=== PATIENT | male | born 1935 | race Caucasian/White ===

== ENCOUNTER 2018-10-21 10:02 | Emergency (ER) | payer OTHER ==
--- NOTE | 2018-10-21 10:20 | ED ---
Dizziness - HPI Summary HPI Summary: The patient is an 83 y/o M presenting to [facility] accompanied by with a chief complaint of sudden onset dizziness starting this morning when waking up. He reports that he couldn't get out of bed because he was very dizzy and movement aggravated the symptoms; the sensation was similar to syncope, but there was no syncopal episode. The dizziness has since resolved. He denies CP, SOB, headache , diarrhea, and constipation. No recent URI, but had recent UTI a few weeks ago that was not treated although he did see his PCP. Hx of HTN managed by medication. No hx of AK, CVA, or TIA. Fhx of DM and HTN. Intestinal volvulus repair in 2013. Nonsmoker, rare EtOH. - History Of Current Complaint Stated Complaint: DIZZINESS PER EMS Time Seen by Provider: 10/21/18 10:07 Hx Obtained From: Patient, Family/Armament Repairer - Onset/Duration: Resolved, Suddenly Timing: Hours Character: Dizzy Aggravating Factor(s): Other - movement Alleviating Factor(s): Rest Associated Signs And Symptoms: Positive: Other: - NEGATIVE: constipation, headache. Negative: Diarrhea, Chest Pain, SOB - Allergies/Home Medications Allergies/Adverse Reactions: Allergies Allergy/AdvReac Type Severity Reaction Status Date / Time No Known Allergies Allergy Verified 09/25/18 11:24 Home Medications: Home Medications Multivitamin 1 tab PO DAILY 10/21/18 [History Confirmed 10/21/18] Vitamin D TAB* 1 tab PO DAILY 10/21/18 [History Confirmed 10/21/18] PMH/Surg Hx/FS Hx/Imm Hx Endocrine/Hematology History: Reports: Hx Anemia Denies: Hx Anticoagulant Therapy, Hx Diabetes Cardiovascular History: Reports: Hx Aneurysm - AAA, Hx Hypertension - ON MEDS Denies: Hx Congestive Heart Failure, Hx Hypercholesterolemia, Hx Pacemaker/ ICD Respiratory History: Denies: Hx Asthma, Hx Chronic Obstructive Pulmonary Disease (COPD) GI History: Reports: Hx Gastroesophageal Reflux Disease, Other GI Disorders - hx of constipation and sigmoid vovulous X4 Denies: Hx Cirrhosis History: Reports: Other Problems/Disorders - states patient has "enlarged prostate" Denies: Hx Benign Prostatic Hyperplasia, Hx Dialysis, Hx Renal Disease Musculoskeletal History: Reports: 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 TONSILECTOMY. CATARACT - BILATERAL. PARTIAL COLECTOMY Hx Anesthesia Reactions: No - Immunization History Date of Tetanus Vaccine: PT STATES UNSURE Date of Influenza Vaccine: NONE Infectious Disease History: No Infectious Disease History: Denies: Hx Hepatitis, Traveled Outside the [place] in Last 30 Days - Family History Known Family History: Positive: Hypertension - father, Diabetes - mother - Social History Lives: With Family Alcohol Use: None Hx Substance Use: No Substance Use Type: Reports: None Hx Tobacco Use: No Smoking Status (MU): Never Smoked Tobacco Do You Chew or Dip Tobacco: No Have You Chewed or Dipped Tobacco in the LAST YEAR: No Have You Smoked in the Last Year: No Review of Systems Negative: Chest Pain Negative: Shortness Of Breath Positive: Other - NEGATIVE: constipation. Negative: Diarrhea Neurological: Other - dizziness similar to syncope but no syncopal episode Negative: Headache All Other Systems Reviewed And Are Negative: Yes Physical Exam - Summary Physical Exam Summary: VITAL SIGNS: Reviewed. GENERAL: Patient is a well-developed and nourished male who is lying comfortable in the stretcher. Patient is not in any acute respiratory distress. HEAD AND FACE: No signs of trauma. No ecchymosis, hematomas or skull depressions. No sinus tenderness. EYES: PERRLA, EOMI x 2, No injected conjunctiva, no nystagmus. EARS: Hearing grossly intact. Ear canals and tympanic membranes are within normal limits. MOUTH: Oropharynx within normal limits. NECK: Supple, trachea is midline, no adenopathy, no JVD, no carotid bruit, no c- spine tenderness, neck with full ROM. CHEST: Symmetric, no tenderness at palpation LUNGS: Clear to auscultation bilaterally. No wheezing or crackles. CVS: Regular rate and rhythm, S1 and S2 present, no murmurs or gallops appreciated. ABDOMEN: Soft, non-tender. No signs of distention. No rebound no guarding, and no masses palpated. Bowel sounds are normal. EXTREMITIES: FROM in all major joints, no edema, no cyanosis or clubbing. NEURO: Alert and oriented x 3. No acute neurological deficits. Speech is normal and follows commands. SKIN: Dry and warm Triage Information Reviewed: Yes Vital Signs On Initial Exam: Initial Vitals Temp Pulse Resp BP Pulse Ox 97.5 F 69 18 189/97 97 10/21/18 10:06 10/21/18 10:06 10/21/18 10:06 10/21/18 10:06 10/21/18 10:06 Vital Signs Reviewed: Yes - Narka Coma Scale Best Eye Response: 4 - Spontaneous Best Motor Response: 6 - Obeys Commands Best Verbal Response: 5 - Oriented Coma Scale Total: 15 Diagnostics - Vital Signs Vital Signs Temp Pulse Resp BP Pulse Ox 10/21/18 10:06 97.5 F 69 18 189/97 97 - Laboratory Result Diagrams: 10/21/18 11:20 10/21/18 11:20 Lab Statement: Any lab studies that have been ordered have been reviewed, and results considered in the medical decision making process. - Radiology CXR Radiology Interpretation Completed By: Radiologist Summary of Radiographic Findings: 1. Stigmata of obstructive lung disease. No acute pulmonary or cardiac process evident. ED physician has reviewed this report. - CT Brain CT CT Interpretation Completed By: Radiologist Summary of CT Findings: No intracranial mass or hemorrhage is noted. Mastoid air cells and paranasal sinuses are clear. ED physician has reviewed this report. - EKG 1028 Cardiac Rate: NL - 68 BPM EKG Rhythm: Sinus Rhythm EKG Comparison: No Significant Change - Similar to EKG taken on 11/14/13 Summary of EKG Findings: No ST elevation, nml axis Re-Evaluation - Re-Evaluation First Eval Re-Evaluation Time: 13:40 Change: Unchanged Comment: I spoke with the patient concerning results and discharge home. Dizzy Course/Dx - Course Assessment/Plan: The patient is an 83 y/o M presenting to [facility] accompanied by with a chief complaint of sudden onset dizziness starting this morning when waking up. He reports that he couldn't get out of bed because he was very dizzy and movement aggravated the symptoms; the sensation was similar to syncope , but there was no syncopal episode. The dizziness has since resolved. He denies CP, SOB, headache, diarrhea, and constipation. No recent URI, but had recent UTI a few weeks ago that was not treated although he did see his PCP. Hx of HTN managed by medication. No hx of AK, CVA, or TIA. Fhx of DM and HTN. Intestinal volvulus repair in 2013. Nonsmoker, no or rare EtOH. Patient was placed in a hall monitor. IV access was obtained. Blood work, EKG and chest x -ray was ordered. Head CT impression: No intracranial mass or hemorrhage is noted. Mastoid air cells and sinuses are clear. Chest x-ray impression: Stigmata of obstructive lung disease. No acute pulmonary or cardiac process. Second troponin is also 0.01, and the patient agrees to be asymptomatic. At this point I believe that the patients symptoms are secondary to her vertigo, therefore the patient will be discharged home with prescription for Antivert. The patient is ambulating with a good steady walk she doesnt have any ataxia. The neurological exam before discharge is within normal limits. Therefore the patient was discharged home with follow-up with PCP. Patient is hemodynamically stable alert oriented 3. - Diagnoses Differential Diagnosis/HQI/PQRI: Benign Paroxysmal Positional Vertigo, Coronary Artery Disease, Dysrhythmia, Meniere's Disease, Transient Ischemic Attack Provider Diagnoses: Vertigo Discharge - Sign-Out/Discharge Documenting (check all that apply): Patient Departure - Patient will be discharged home. Patient Received Moderate/Deep Sedation with Procedure: No - Discharge Plan Condition: Stable Disposition: HOME Prescriptions: Meclizine TAB* [Antivert 12.5 TAB*] 25 mg PO TID PRN #20 tab PRN Reason: Vertigo Patient Education Materials: Vertigo (DC) Referrals: Travis Mchugh MD [Primary Care Provider] - 3 Days Additional Instructions: Please take medication as prescribed. FOLLOW UP WITH YOUR PRIMARY CARE PROVIDER WITHIN ONE WEEK FOR HIGH BLOOD PRESSURE NOTED TODAY. RETURN TO THE ED FOR ANY WORSENING OR NEW SYMPTOMS. - Billing Disposition and Condition Condition: STABLE Disposition: Home - Attestation Statements Document Initiated by Laina: Yes Documenting Scribe: Tabitha Garcia Provider For Whom Laina is Documenting (Include Credential): Dr. Esteban Jones MD Scribe Attestation: Tabitha Vick scribed for Dr. Esteban Jones MD on 10/22/18 at 2122. Scribe Documentation Reviewed: Yes Provider Attestation: The documentation as recorded by the Tabitha curtis accurately reflects the service I personally performed and the decisions made by me, Dr. Esteban Jones MD Status of Scribe Document: Viewed
[2018-10-21] MEDS ORDERED: NS 0.9% 1000 ML** 1,000 ML IV ONE (10:26)
[2018-10-21 11:04] LABS: Urine Appearance Clear; Urine Bilirubin Negative (Negative); Urine Blood Negative (Negative); Urine Color Yellow; Urine Glucose Negative (Negative); Urine Ketones Negative (Negative); Urine Nitrite Negative (Negative); Urine Protein Negative (Negative); Urine Urobilinogen Negative (Negative)
[2018-10-21 11:33] LABS: ABS Basophils 0.1 10^3/ul (0-0.2); ABS Eosinophils 0.1 10^3/ul (0-0.6); ABS Lymphocytes 1.6 10^3/ul (1.0-4.8); ABS Monocytes 0.4 10^3/ul (0-0.8); ABS Neutrophils 3.6 10^3/ul (1.5-7.7); Eosinophil % 2.3 %; Hematocrit 39 % (42-52); Hemoglobin 13.3 g/dL (14.0-18.0); Lymphocyte % 27.9 %; Mean Corpuscular HGB Conc 34 g/dL (31-36); Mean Corpuscular Hemoglobin 30 pg (27-31); Mean Corpuscular Volume 88 fL (80-94); Mean Platelet Volume 7.3 fL (7.4-10.4); Platelet Count 294 10^3/uL (150-450); Red Blood Count 4.46 10^6 /uL (4.18-5.48); Red Cell Distribution Width 14 % (10.5-15); White Blood Count 5.8 10^3/uL (3.5-10.8)
[2018-10-21 11:53] LABS: Albumin 3.8 g/dL (3.2-5.2); Albumin/Globulin Ratio 1.2 (1-3); BUN/Creatinine Ratio 15.7 (8-20); C Reactive Protein 1.38 mg/L (<8.01); Calcium 8.7 mg/dL (8.6-10.3); EGFR African American 78.6 (>60); Globulin 3.3 g/dL (2-4); Potassium 3.9 mmol/L (3.5-5.0); Total Bilirubin 0.5 mg/dL (0.2-1.0); Total Protein 7.1 g/dL (6.4-8.9)
[2018-10-21 12:29] LABS: TSH (Thyroid Stimulating Horm) 2.23 mcIU/mL (0.34-5.60)
[2018-10-21] MEDS ORDERED: Diltiazem CD CAP* 240 MG PO ONE (13:38)
[2018-10-21 14:41] VITALS: BP 180/90
== END 2018-10-21 14:40 | disposition home or self-care (01) ==
LOC: ED 10:02
DX: R42 Dizziness and giddiness (principal); D64.9 Anemia, unspecified; I10 Essential (primary) hypertension; K21.9 Gastro-esophageal reflux disease without esophagitis; M81.0 Age-related osteoporosis without current pathological fracture
CPT/HCPCS: 36415; 70450; 71046; 80053; 81003; 82550; 83605; 83735; 83880; 84443; 84484; 85025; 86140; 93005; 96360; 96361; 99284; A9270-GY

== ENCOUNTER 2019-02-03 20:59 | Emergency (ER) | payer OTHER ==
--- NOTE | 2019-02-04 00:34 | ED ---
Dizziness - HPI Summary HPI Summary: Patient complains of mechanical fall yesterday with no injury. However today at 6:30 PM this evening he had sudden onset unsteady gait and nausea with lightheadedness. History patient has history of sudden onset bilateral lower extremity weakness and unsteady gait, has been evaluated by MRI and CT with no definitive diagnosis. Patient states no nausea or lightheadedness at time of history of present illness. Patient ambulating normally at this time. Denies fever, cough, sore throat, CP, SOB, V/D, abdominal pain, change in urine, change in BM. - History Of Current Complaint Chief Complaint: EDGeneral Stated Complaint: FALL/HEAD AND RIB INJURY PER PT Time Seen by Provider: 02/04/19 00:08 Hx Obtained From: Patient, Family/Particle Board Supervisor - Yes or Onset/Duration: Resolved Timing: Minutes Severity Initially: Moderate Severity Currently: None Character: Lightheaded, Weak Aggravating Factor(s): Nothing Alleviating Factor(s): Nothing Associated Signs And Symptoms: Positive: Nausea, Unsteady Gait - No edema treatment because of his - Allergies/Home Medications Allergies/Adverse Reactions: Allergies Allergy/AdvReac Type Severity Reaction Status Date / Time No Known Allergies Allergy Verified 02/03/19 21:09 PMH/Surg Hx/FS Hx/Imm Hx Endocrine/Hematology History: Reports: Hx Anemia Denies: Hx Anticoagulant Therapy, Hx Diabetes Cardiovascular History: Reports: Hx Aneurysm - AAA, Hx Hypertension - ON MEDS Denies: Hx Congestive Heart Failure, Hx Hypercholesterolemia, Hx Pacemaker/ ICD Respiratory History: Denies: Hx Asthma, Hx Chronic Obstructive Pulmonary Disease (COPD) GI History: Reports: Hx Gastroesophageal Reflux Disease, Other GI Disorders - hx of constipation and sigmoid vovulous X4 Denies: Hx Cirrhosis History: Reports: Other Problems/Disorders - states patient has "enlarged prostate" Denies: Hx Benign Prostatic Hyperplasia, Hx Dialysis, Hx Renal Disease Musculoskeletal History: Reports: 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 TONSILECTOMY. CATARACT - BILATERAL. PARTIAL COLECTOMY Hx Anesthesia Reactions: No - Immunization History Date of Tetanus Vaccine: PT STATES UNSURE Date of Influenza Vaccine: NONE Infectious Disease History: No Infectious Disease History: Denies: Hx Hepatitis, Traveled Outside the [place] in Last 30 Days - Family History Known Family History: Positive: Hypertension - father, Diabetes - mother - Social History Alcohol Use: None Hx Substance Use: No Substance Use Type: Reports: None Hx Tobacco Use: No Smoking Status (MU): Never Smoked Tobacco Have You Smoked in the Last Year: No Review of Systems Constitutional: Negative Eyes: Negative ENT: Negative Cardiovascular: Negative - response Respiratory: Negative Positive: Nausea Genitourinary: Negative Musculoskeletal: Negative Skin: Negative Positive: Weakness Psychological: Normal All Other Systems Reviewed And Are Negative: Yes Physical Exam - Summary Physical Exam Summary: Neuro exam normal. Patient ambulated, states he is back to baseline. Triage Information Reviewed: Yes Vital Signs On Initial Exam: Initial Vitals Temp Pulse Resp BP Pulse Ox 98.4 F 92 20 163/94 96 02/03/19 21:06 02/03/19 21:06 02/03/19 21:06 02/03/19 21:06 02/03/19 21:06 Vital Signs Reviewed: Yes Appearance: Positive: Well-Appearing Skin: Positive: Warm Head/Face: Positive: Normal Head/Face Inspection Eyes: Positive: Normal Neck: Positive: Supple Respiratory/Lung Sounds: Positive: Clear to Auscultation Cardiovascular: Positive: Normal Abdomen Description: Positive: Nontender Musculoskeletal: Positive: Normal Neurological: Positive: Normal Psychiatric: Positive: Normal AVPU Assessment: Alert - Basilio Coma Scale Best Eye Response: 4 - Spontaneous Best Motor Response: 6 - Obeys Commands Best Verbal Response: 5 - Oriented Coma Scale Total: 15 Diagnostics - Vital Signs Vital Signs Temp Pulse Resp BP Pulse Ox 02/03/19 23:20 98.8 F 88 18 143/80 96 02/03/19 21:06 98.4 F 92 20 163/94 96 - Laboratory Result Diagrams: 02/04/19 00:42 02/04/19 00:42 Lab Statement: Any lab studies that have been ordered have been reviewed, and results considered in the medical decision making process. Dizzy Course/Dx - Course Course Of Treatment: Patient complains of mechanical fall yesterday with no injury. However today at 6:30 PM this evening he had sudden onset unsteady gait and nausea with lightheadedness. History patient has history of sudden onset bilateral lower extremity weakness and unsteady gait, has been evaluated by MRI and CT with no definitive diagnosis. Patient states no nausea or lightheadedness at time of history of present illness. Patient ambulating normally at this time. Denies fever, cough, sore throat, CP, SOB, V/D, abdominal pain, change in urine, change in BM. Vital signs within normal limits. Labs unremarkable. CT brain negative. EKG sinus rhythm, similar to prior, normal LISA. Brain MRI 08/2018 negative. Discussed patient with attending Dr. Adamson who agreed patient could be discharged as he is currently symptom-free, history of same symptoms recurring intermittently over the past year, prior negative workup. - Diagnoses Provider Diagnoses: Nausea, Weakness of both lower extremities Discharge ED - Sign-Out/Discharge Documenting (check all that apply): Patient Departure Patient Received Moderate/Deep Sedation with Procedure: No - Discharge Plan Condition: Stable Disposition: HOME Patient Education Materials: Weakness (ED) Referrals: Travis Mchugh MD [Primary Care Provider] - Additional Instructions: Follow-up with primary care. Return to the ED for any new or worsening symptoms. - Billing Disposition and Condition Condition: STABLE Disposition: Home
[2019-02-04 00:51] LABS: ABS Basophils 0.1 10^3/ul (0-0.2); ABS Eosinophils 0.1 10^3/ul (0-0.6); ABS Lymphocytes 2.4 10^3/ul (1.0-4.8); ABS Monocytes 0.5 10^3/ul (0-0.8); ABS Neutrophils 3.9 10^3/ul (1.5-7.7); Eosinophil % 1.3 %; Hematocrit 41 % (42-52); Hemoglobin 14.1 g/dL (14.0-18.0); Lymphocyte % 34.2 %; Mean Corpuscular HGB Conc 35 g/dL (31-36); Mean Corpuscular Hemoglobin 31 pg (27-31); Mean Corpuscular Volume 89 fL (80-94); Mean Platelet Volume 6.9 fL (7.4-10.4); Platelet Count 286 10^3/uL (150-450); Red Blood Count 4.61 10^6 /uL (4.18-5.48); Red Cell Distribution Width 14 % (10-15)
[2019-02-04 01:11] LABS: Albumin 4.1 g/dL (3.2-5.2); Albumin/Globulin Ratio 1.2 (1-3); C Reactive Protein 6.71 mg/L (<8.01); Calcium 9.4 mg/dL (8.6-10.3); EGFR African American 73.9 (>60); EGFR Non-African American 61.1 (>60); Globulin 3.5 g/dL (2-4); Magnesium 2.2 mg/dL (1.9-2.7); Potassium 4.5 mmol/L (3.5-5.0); Total Bilirubin 0.5 mg/dL (0.2-1.0); Total Protein 7.6 g/dL (6.4-8.9)
[2019-02-04 01:13] LABS: Troponin I 0.01 ng/mL (<0.04)
[2019-02-04 01:32] LABS: TSH (Thyroid Stimulating Horm) 3.74 mcIU/mL (0.34-5.60)
[2019-02-04 02:28] VITALS: BP 190/83
[2019-02-04 02:35] LABS: Urine Appearance Clear; Urine Bilirubin Negative (Negative); Urine Blood Negative (Negative); Urine Color Yellow; Urine Glucose Negative (Negative); Urine Ketones Negative (Negative); Urine Nitrite Negative (Negative); Urine Protein Negative (Negative); Urine Specific Gravity 1.013 (1.010-1.030); Urine Urobilinogen Negative (Negative)
== END 2019-02-04 01:55 | disposition home or self-care (01) ==
LOC: ED 20:59
DX: R53.1 Weakness (principal); R11.0 Nausea; D64.9 Anemia, unspecified; I10 Essential (primary) hypertension; K21.9 Gastro-esophageal reflux disease without esophagitis; Z79.82 Long term (current) use of aspirin; Z79.899 Other long term (current) drug therapy
CPT/HCPCS: 36415; 70450; 80053; 81003; 83735; 83880; 84443; 84484; 85025; 86140; 93005; 99283

== ENCOUNTER 2020-04-07 19:40 | Observation (INO) ==
[2020-04-07] MEDS ORDERED: Iohexol 350 (CONTRAST) 500 ML MDV IV ONE (21:15)
[2020-04-08] MEDS: Enoxaparin 40 MG/0.4 ML SYR SUBCUT SCH ×2 (00:56→22:59)
[2020-04-08 05:07] LABS: ABS Basophils 0.1 10^3/ul (0-0.2); ABS Eosinophils 0.2 10^3/ul (0-0.6); ABS Monocytes 0.5 10^3/ul (0-0.8); Eosinophil % 3.9 %; Hematocrit 36 % (42-52); Hemoglobin 12.9 g/dL (14.0-18.0); Lymphocyte % 34.9 %; Mean Corpuscular HGB Conc 36 g/dL (31-36); Mean Corpuscular Hemoglobin 31 pg (27-31); Mean Corpuscular Volume 87 fL (80-94); Mean Platelet Volume 6.8 fL (7.4-10.4); Platelet Count 321 10^3/uL (150-450); Red Cell Distribution Width 14 % (10-15); White Blood Count 5.9 10^3/uL (3.5-10.8)
[2020-04-08 05:27] LABS: BUN/Creatinine Ratio 10.4 (8-20); Calcium 8.6 mg/dL (8.6-10.3); EGFR African American 89.9 (>60); EGFR Non-African American 74.3 (>60); Potassium 3.4 mmol/L (3.5-5.0)
[2020-04-08 05:31] LABS: INR 1.15 (0.82-1.09)
[2020-04-08] MEDS ORDERED: Potassium Chlor 20 meq TAB.ER PO ONE (05:44)
[2020-04-08] MEDS: Cholecalciferol (VIT D3) 1,000 unit TAB PO SCH (08:16)
[2020-04-08] MEDS: Aspirin EC 325 mg TAB.EC PO SCH (08:17)
[2020-04-08] MEDS ORDERED: Aspirin EC 81 mg TAB.EC (enteric coated) PO SCH (09:00)
[2020-04-09] MEDS: Aspirin EC 325 mg TAB.EC PO SCH (09:09)
[2020-04-09] MEDS: Cholecalciferol (VIT D3) 1,000 unit TAB PO SCH (09:10)
[2020-04-09 12:52] VITALS: BP 157/63
== END 2020-04-09 14:37 | disposition home or self-care (01) ==
LOC: MEDTELE 19:40 → ED 19:40
PROVIDERS: ADMIT Internal Medicine; ATTEND Pediatrics

== ENCOUNTER 2021-04-16 21:30 | Inpatient (IN) ==
[2021-04-16] MEDS ORDERED: NS 0.9% 1000 ml BAG 1,000 ML IV ONE (21:33)
[2021-04-16 21:47] LABS: ABS Basophils 0.1 10^3/ul (0-0.2); ABS Eosinophils 0.1 10^3/ul (0-0.6); ABS Lymphocytes 2.4 10^3/ul (1.0-4.8); ABS Monocytes 0.6 10^3/ul (0-0.8); ABS Neutrophils 3.2 10^3/ul (1.5-7.7); Eosinophil % 1.4 %; Hematocrit 38 % (42-52); Hemoglobin 12.9 g/dL (14.0-18.0); Lymphocyte % 37.6 %; Mean Corpuscular HGB Conc 34 g/dL (31-36); Mean Corpuscular Hemoglobin 30 pg (27-31); Mean Corpuscular Volume 88 fL (80-94); Mean Platelet Volume 6.9 fL (7.4-10.4); Nucleated Red Blood Cells % 0.1; Platelet Count 281 10^3/uL (150-450); Red Blood Count 4.29 10^6 /uL (4.18-5.48); Red Cell Distribution Width 15 % (10-15); White Blood Count 6.4 10^3/uL (3.5-10.8)
[2021-04-16 21:54] LABS: Activated Partial Thrombo Time 27.7 seconds (26.0-38.0); INR 1.07 (0.86-1.15)
[2021-04-16] MEDS ORDERED: Iodixanol (CONTRAST) 320 MG/ML 100 ML SDV IV ONE (21:57)
[2021-04-16 22:05] LABS: Albumin 4.1 g/dL (3.2-5.2); Albumin/Globulin Ratio 1.1 (1-3); Calcium 9.3 mg/dL (8.6-10.3); Globulin 3.6 g/dL (2-4); HDL Cholesterol 60.5 mg/dL; Potassium 3.9 mmol/L (3.5-5.0); Total Bilirubin 0.6 mg/dL (0.2-1.0); Total Protein 7.7 g/dL (6.4-8.9)
[2021-04-16 22:16] LABS: Troponin I 0.01 ng/mL (<0.03)
[2021-04-16] MEDS ORDERED: hydrALAZINE 20 mg/ml 1 ML Vial IV IV SLOW PU PRN (23:50)
[2021-04-17] MEDS ORDERED: cefTRIAXone 1 gm/50 mL NS BAG 1 GM/50 ML BAG IVPB ONE (00:11)
[2021-04-17 01:32] LABS: Urine Appearance Clear; Urine Bilirubin Negative (Negative); Urine Blood 1+ (Negative); Urine Color Straw; Urine Glucose Negative (Negative); Urine Ketones Negative (Negative); Urine Nitrite Negative (Negative); Urine Protein 1+(30 mg/dL) (Negative); Urine Specific Gravity 1.012 (1.002-1.030); Urine Urobilinogen Negative (Negative)
[2021-04-17 01:35] LABS: Urine Bacteria Absent (Absent); Urine Red Blood Cell 1+(3-5/hpf) (Absent); Urine White Blood Cell Absent (Absent)
[2021-04-17 01:41] LABS: Activated Partial Thrombo Time 27.7 seconds (26.0-38.0); INR 1.1 (0.86-1.15)
[2021-04-17 01:54] LABS: Influenza A Molecular Negative (Negative)
[2021-04-17] MEDS: Aspirin EC 81 mg TAB.EC (enteric coated) PO SCH ×2 (02:57→10:40)
[2021-04-17 07:07] LABS: ABS Lymphocytes 1.4 10^3/ul (1.0-4.8); ABS Monocytes 0.6 10^3/ul (0-0.8); Hematocrit 38 % (42-52); Hemoglobin 13.2 g/dL (14.0-18.0); Lymphocyte % 20.4 %; Mean Corpuscular HGB Conc 35 g/dL (31-36); Mean Corpuscular Hemoglobin 30 pg (27-31); Mean Corpuscular Volume 87 fL (80-94); Platelet Count 278 10^3/uL (150-450); Red Blood Count 4.36 10^6 /uL (4.18-5.48); Red Cell Distribution Width 15 % (10-15); White Blood Count 7.1 10^3/uL (3.5-10.8)
[2021-04-17 07:15] LABS: INR 1.16 (0.86-1.15)
[2021-04-17 07:24] LABS: C Reactive Protein 2.26 mg/L (<8.01); Calcium 8.7 mg/dL (8.6-10.3); HDL Cholesterol 60.1 mg/dL; Potassium 3.7 mmol/L (3.5-5.0)
[2021-04-17] MEDS: Heparin 5000 UNITS/ML 1 mL VIAL SUBCUT SCH ×3 (07:40→22:19)
[2021-04-17 08:52] LABS: Influenza B Molecular Negative (Negative)
[2021-04-17 08:52] LABS: Rapid COVID-19 Molecular Undetected (Undetected)
[2021-04-17 10:11] LABS: Erythrocyte Sed Rate 17 mm/Hr (0-19)
[2021-04-17] MEDS: Cholecalciferol (VIT D3) 1,000 unit TAB PO SCH (22:19)
[2021-04-18] MEDS: Heparin 5000 UNITS/ML 1 mL VIAL SUBCUT SCH ×3 (05:24→21:33)
[2021-04-18] MEDS ORDERED: levETIRAcetam 1000MG IVPREMIX 1,000 MG/100 ML BAG IVPB ONE (09:00)
[2021-04-18] MEDS: Aspirin EC 81 mg TAB.EC (enteric coated) PO SCH ×2 (10:52→15:34)
[2021-04-18 12:07] LABS: ABS Eosinophils 0.1 10^3/ul (0-0.6); ABS Lymphocytes 2.2 10^3/ul (1.0-4.8); ABS Monocytes 0.6 10^3/ul (0-0.8); Eosinophil % 1.1 %; Hematocrit 37 % (42-52); Hemoglobin 12.7 g/dL (14.0-18.0); Lymphocyte % 37.2 %; Mean Corpuscular HGB Conc 35 g/dL (31-36); Mean Corpuscular Hemoglobin 30 pg (27-31); Mean Corpuscular Volume 88 fL (80-94); Mean Platelet Volume 7.1 fL (7.4-10.4); Platelet Count 274 10^3/uL (150-450); Red Blood Count 4.18 10^6 /uL (4.18-5.48); Red Cell Distribution Width 15 % (10-15); White Blood Count 5.9 10^3/uL (3.5-10.8)
[2021-04-18 12:23] LABS: Albumin 3.6 g/dL (3.2-5.2); Albumin/Globulin Ratio 1.2 (1-3); Calcium 8.9 mg/dL (8.6-10.3); Magnesium 2.1 mg/dL (1.9-2.7); Total Bilirubin 0.9 mg/dL (0.2-1.0); Total Protein 6.6 g/dL (6.4-8.9)
[2021-04-18] MEDS: Cholecalciferol (VIT D3) 1,000 unit TAB PO SCH (21:33)
[2021-04-19] MEDS: Heparin 5000 UNITS/ML 1 mL VIAL SUBCUT SCH ×3 (05:47→20:12)
[2021-04-19] MEDS: Aspirin EC 81 mg TAB.EC (enteric coated) PO SCH (09:16)
[2021-04-19 10:34] LABS: Calcium 9.2 mg/dL (8.6-10.3); Potassium 3.9 mmol/L (3.5-5.0)
[2021-04-19] MEDS: Cholecalciferol (VIT D3) 1,000 unit TAB PO SCH (20:12)
[2021-04-20] MEDS: Heparin 5000 UNITS/ML 1 mL VIAL SUBCUT SCH ×2 (05:30→12:11)
[2021-04-20 05:40] LABS: ABS Eosinophils 0.1 10^3/ul (0-0.6); ABS Lymphocytes 2.6 10^3/ul (1.0-4.8); ABS Monocytes 0.6 10^3/ul (0-0.8); ABS Neutrophils 2.4 10^3/ul (1.5-7.7); Hematocrit 35 % (42-52); Hemoglobin 12.3 g/dL (14.0-18.0); Lymphocyte % 45.3 %; Mean Corpuscular HGB Conc 35 g/dL (31-36); Mean Corpuscular Hemoglobin 31 pg (27-31); Mean Corpuscular Volume 87 fL (80-94); Mean Platelet Volume 7.4 fL (7.4-10.4); Platelet Count 252 10^3/uL (150-450); Red Blood Count 4.03 10^6 /uL (4.18-5.48); Red Cell Distribution Width 14 % (10-15); White Blood Count 5.7 10^3/uL (3.5-10.8)
[2021-04-20 05:55] LABS: Calcium 8.6 mg/dL (8.6-10.3); Potassium 3.6 mmol/L (3.5-5.0)
[2021-04-20] MEDS: Aspirin EC 81 mg TAB.EC (enteric coated) PO SCH (08:44)
[2021-04-20 15:28] VITALS: BP 183/72
[2021-04-21 17:10] LABS: Adenovirus Undetected (Undetected); Bordetella parapertussis Undetected (Undetected); Bordetella pertussis Undetected (Undetected); Chlamydophila pneumoniae Undetected (Undetected); Coronavirus 229E Undetected (Undetected); Coronavirus HKU1 Undetected (Undetected); Coronavirus NL63 Undetected (Undetected); Coronavirus OC43 Undetected (Undetected); Human Metapneumovirus Undetected (Undetected); Human Rhinovirus/Enterovirus Undetected (Undetected); Influenza A Undetected (Undetected); Influenza B Undetected (Undetected); Mycoplasmoides pneumoniae Undetected (Undetected); Parainfluenza Virus 1 Undetected (Undetected); Parainfluenza Virus 2 Undetected (Undetected); Parainfluenza Virus 3 Undetected (Undetected); Parainfluenza Virus 4 Undetected (Undetected); Respiratory Syncytial Virus Undetected (Undetected); Specimen Source NASOPHARYNGEAL SWAB
== END 2021-04-20 15:30 | disposition home or self-care (01) | DRG 68 ==
LOC: ED 21:30 → EDHOLD 04-17 00:42 → SUATTDRO 04-17 00:42 → MED 04-17 14:00
PROVIDERS: ADMIT Hospitalist; ATTEND Internal Medicine

== ENCOUNTER 2021-10-24 11:15 | Observation (INO) ==
[2021-10-24 12:38] LABS: ABS Lymphocytes 1.3 10^3/ul (1.0-4.8); ABS Monocytes 0.4 10^3/ul (0-0.8); ABS Neutrophils 2.8 10^3/ul (1.5-7.7); Eosinophil % 0.7 %; Hematocrit 34 % (42-52); Hemoglobin 11.7 g/dL (14.0-18.0); Lymphocyte % 27.9 %; Mean Corpuscular HGB Conc 34 g/dL (31-36); Mean Corpuscular Hemoglobin 29 pg (27-31); Mean Corpuscular Volume 85 fL (80-94); Mean Platelet Volume 6.9 fL (7.4-10.4); Platelet Count 273 10^3/uL (150-450); Red Blood Count 4.03 10^6 /uL (4.18-5.48); Red Cell Distribution Width 14 % (10-15); White Blood Count 4.5 10^3/uL (3.5-10.8)
[2021-10-24 12:49] LABS: Activated Partial Thrombo Time 28.5 seconds (26.0-38.0); INR 1.1 (0.86-1.15)
[2021-10-24 13:02] LABS: Ammonia 41 mcmol/L (16-53)
[2021-10-24 13:06] LABS: BNP 125 pg/mL (<=100)
[2021-10-24 13:23] LABS: Albumin 3.8 g/dL (3.2-5.2); Calcium 8.7 mg/dL (8.6-10.3); Magnesium 1.8 mg/dL (1.9-2.7); Potassium 4.4 mmol/L (3.5-5.0); Total Bilirubin 0.5 mg/dL (0.2-1.0)
[2021-10-24 13:29] LABS: Albumin/Globulin Ratio 1.4 (1-3); Globulin 2.8 g/dL (2-4); Total Protein 6.6 g/dL (6.4-8.9)
[2021-10-24 14:06] LABS: High Sensitivity Troponin 1 Hr 6 pg/mL (<20)
[2021-10-24 14:50] LABS: Urine Appearance Clear; Urine Bilirubin Negative (Negative); Urine Blood Negative (Negative); Urine Color Straw; Urine Glucose Negative (Negative); Urine Ketones Negative (Negative); Urine Nitrite Negative (Negative); Urine Protein Negative (Negative); Urine Specific Gravity 1.004 (1.002-1.030); Urine Urobilinogen Negative (Negative)
[2021-10-24 15:00] LABS: Osmolality Serum 255 mOsm/kg (275-295)
[2021-10-24 15:31] LABS: TSH Ultra Thyroid Stim Horm 1.78 mcIU/mL (0.34-5.60)
[2021-10-24 17:28] LABS: Urine Osmo 159 mOsm/kg (150-1150)
[2021-10-24] MEDS ORDERED: NS 0.9% 500 ml BAG 500 ML IV SCH (18:00)
[2021-10-24] MEDS: Enoxaparin 40 MG/0.4 ML SYR SUBCUT SCH (18:52)
[2021-10-24] MEDS: Ure-Na 15 GM POWD.PACK PO SCH (20:33)
[2021-10-24] MEDS: Cholecalciferol (VIT D3) 1,000 unit TAB PO SCH (20:34)
[2021-10-24 23:29] LABS: Calcium 9.1 mg/dL (8.6-10.3); Potassium 4.7 mmol/L (3.5-5.0); eGFR CKD-EPI 54.9 (>60)
[2021-10-25 05:51] LABS: Calcium 9.5 mg/dL (8.6-10.3); Magnesium 2.2 mg/dL (1.9-2.7); Potassium 4.6 mmol/L (3.5-5.0); eGFR CKD-EPI 56.5 (>60)
[2021-10-25] MEDS: Aspirin EC 81 mg TAB.EC (enteric coated) PO SCH (10:50)
[2021-10-25] MEDS: Ure-Na 15 GM POWD.PACK PO SCH (12:26)
[2021-10-25 13:03] LABS: Potassium 4.8 mmol/L (3.5-5.0); eGFR CKD-EPI 51.4 (>60)
[2021-10-25] MEDS: Enoxaparin 40 MG/0.4 ML SYR SUBCUT SCH (16:03)
[2021-10-25] MEDS: Cholecalciferol (VIT D3) 1,000 unit TAB PO SCH (20:12)
[2021-10-26 06:31] LABS: Potassium 4.3 mmol/L (3.5-5.0)
[2021-10-26 06:32] LABS: Calcium 9.4 mg/dL (8.6-10.3); Magnesium 2.1 mg/dL (1.9-2.7); eGFR CKD-EPI 46.3 (>60)
[2021-10-26] MEDS: Ure-Na 15 GM POWD.PACK PO SCH (09:06)
[2021-10-26] MEDS: Aspirin EC 81 mg TAB.EC (enteric coated) PO SCH (09:08)
[2021-10-26] MEDS: Albuterol/Ipratropium NEB.SOL (2.5/0.5 MG) 3 ML NEB.SOLN INH SCH ×2 (14:18→19:25)
[2021-10-26] MEDS: Enoxaparin 40 MG/0.4 ML SYR SUBCUT SCH (16:40)
[2021-10-26] MEDS: Cholecalciferol (VIT D3) 1,000 unit TAB PO SCH (21:45)
[2021-10-27 06:34] LABS: Magnesium 1.9 mg/dL (1.9-2.7); eGFR CKD-EPI 71.5 (>60)
[2021-10-27] MEDS: Albuterol/Ipratropium NEB.SOL (2.5/0.5 MG) 3 ML NEB.SOLN INH SCH (07:44)
[2021-10-27] MEDS: Ure-Na 15 GM POWD.PACK PO SCH (09:30)
[2021-10-27] MEDS: Aspirin EC 81 mg TAB.EC (enteric coated) PO SCH (09:33)
[2021-10-27] MEDS ORDERED: Albuterol HFA INHALER 8 gm MDI INH ONE (10:56)
[2021-10-27 13:23] VITALS: BP 150/71
== END 2021-10-27 15:50 | disposition home or self-care (01) ==
LOC: ED 11:15 → EDHOLD 14:24 → INTOOBSV 14:24 → SUATTDRO 14:24 → EDHOLD 17:40 → MEDTELE 17:49
PROVIDERS: ADMIT Internal Medicine; ATTEND Student in an Organized Health Care Education/Training Program

== ENCOUNTER 2022-12-08 23:53 | Observation (INO) ==
[2022-12-09] MEDS ORDERED: niCARdipine 0.1MG/ML IVPREMIX 20 MG/200 ML BAG IV ONE (00:18)
[2022-12-09] MEDS ORDERED: Iodixanol (CONTRAST) 320 MG/ML 100 ML SDV IV ONE (00:21)
[2022-12-09 00:28] LABS: ABS Basophils 0.1 10^3/uL (0.0-0.1); ABS Eosinophils 0.1 10^3/uL (0.0-0.5); ABS Lymphocytes 1.4 10^3/uL (1.0-4.8); ABS Monocytes 0.6 10^3/uL (0.0-1.1); ABS Neutrophils 9.3 10^3/uL (1.5-7.6); Eosinophil % 0.5 %; Hematocrit 35.9 % (38-53); Hemoglobin 12.4 g/dL (13.2-16.3); Lymphocyte % 12.6 %; Mean Corpuscular Hemoglobin 30.1 pg (27-33); Mean Corpuscular Hgb Conc 34.6 g/dL (31-36); Mean Platelet Volume 7.1 fL (7.5-11.2); Platelet Count 323 10^3/uL (150-450); Red Blood Count 4.13 10^6/uL (4.06-5.63); Red Cell Distribution Width 13.7 % (12-17); White Blood Count 11.5 10^3/uL (3.6-10.2)
[2022-12-09 00:46] LABS: ALT 13 U/L (7-52); AST 16 U/L (13-39); Albumin 4.2 g/dL (3.2-5.2); Albumin/Globulin Ratio 1.3 (1-3); Alkaline Phosphatase 64 U/L (35-149); Anion Gap 11 mmol/L (2-16); Blood Urea Nitrogen 13 mg/dL (6-24); CO2 Carbon Dioxide 23 mmol/L (22-32); Calcium 9.3 mg/dL (8.6-10.3); Chloride 95 mmol/L (101-111); Cholesterol 129 mg/dL; Creatinine, Serum 1.07 mg/dL (0.67-1.17); Globulin 3.3 g/dL (2-4); Glucose 128 mg/dL (70-100); HDL Cholesterol 63.5 mg/dL; LDL Cholesterol 53 mg/dL; Potassium 3.4 mmol/L (3.5-5.0); Sodium 129 mmol/L (135-145); Total Protein 7.5 g/dL (6.4-8.9); Triglycerides 61 mg/dL; eGFR CKD-EPI 66.3 (>60)
[2022-12-09 00:51] LABS: High Sens Troponin Baseline 11 pg/mL (<20)
[2022-12-09 00:57] LABS: Activated Partial Thrombo Time 27.1 seconds (26.0-38.0); INR 1.09 (0.88-1.18)
[2022-12-09] MEDS ORDERED: niCARdipine 0.1MG/ML IVPREMIX 20 MG/200 ML BAG IV SCH (01:00)
[2022-12-09 01:21] LABS: Urine Appearance Clear; Urine Bilirubin Negative (Negative); Urine Blood Negative (Negative); Urine Color Yellow; Urine Glucose Negative (Negative); Urine Ketones Negative (Negative); Urine Nitrite Negative (Negative); Urine Protein 2+(100 mg/dL) (Negative); Urine Specific Gravity 1.024 (1.002-1.030); Urine Urobilinogen Negative (Negative)
[2022-12-09 01:24] LABS: Urine Bacteria Absent (Absent); Urine Red Blood Cell Trace(0-2/hpf) (Absent); Urine Squamous Epithelial Cell Present (Absent); Urine White Blood Cell Absent (Absent)
[2022-12-09 01:49] LABS: High Sensitivity Troponin 1 Hr 15 pg/mL (<20)
[2022-12-09 02:01] LABS: Urine Appearance Clear; Urine Bilirubin Negative (Negative); Urine Blood Negative (Negative); Urine Color Yellow; Urine Glucose Negative (Negative); Urine Ketones Negative (Negative); Urine Nitrite Negative (Negative); Urine Protein 2+(100 mg/dL) (Negative); Urine Specific Gravity 1.024 (1.002-1.030); Urine Urobilinogen Negative (Negative)
[2022-12-09 02:03] LABS: Urine Bacteria Absent (Absent); Urine Red Blood Cell 2+(6-10/hpf) (Absent); Urine White Blood Cell Absent (Absent)
[2022-12-09] MEDS ORDERED: Labetalol IV 5 MG/ML 20 ml VIAL IV PUSH ONE (02:45)
[2022-12-09 03:52] LABS: C Reactive Protein < 1.00 mg/L (<8.01)
[2022-12-09 06:07] LABS: ABS Lymphocytes 1.1 10^3/uL (1.0-4.8); ABS Monocytes 0.4 10^3/uL (0.0-1.1); ABS Neutrophils 6.9 10^3/uL (1.5-7.6); ABS Nucleated RBC 0.01 10^3/ul; Hematocrit 34.7 % (38-53); Hemoglobin 12.1 g/dL (13.2-16.3); Lymphocyte % 13.1 %; Mean Corpuscular Hemoglobin 30.4 pg (27-33); Mean Corpuscular Volume 86.8 fL (80-97); Mean Platelet Volume 7.2 fL (7.5-11.2); Nucleated Red Blood Cells % 0.1 /100 WBC (0.0-0.4); Platelet Count 275 10^3/uL (150-450); Red Blood Count 3.99 10^6/uL (4.06-5.63); Red Cell Distribution Width 13.6 % (12-17); White Blood Count 8.4 10^3/uL (3.6-10.2)
[2022-12-09 06:18] LABS: Calcium 8.7 mg/dL (8.6-10.3); Creatinine, Serum 1.14 mg/dL (0.67-1.17); Magnesium 1.8 mg/dL (1.9-2.7); Potassium 3.8 mmol/L (3.5-5.0); eGFR CKD-EPI 61.5 (>60)
[2022-12-09 08:54] LABS: Osmolality Serum 277 mOsm/kg (275-295)
[2022-12-09 09:42] LABS: Urine Osmo 415 mOsm/kg (150-1150)
[2022-12-09] MEDS: Aspirin EC 81 mg TAB.EC (enteric coated) PO SCH (10:09)
[2022-12-10 04:48] LABS: ABS Basophils 0.1 10^3/uL (0.0-0.1); ABS Eosinophils 0.2 10^3/uL (0.0-0.5); ABS Lymphocytes 2.2 10^3/uL (1.0-4.8); ABS Monocytes 0.8 10^3/uL (0.0-1.1); ABS Neutrophils 4.3 10^3/uL (1.5-7.6); Eosinophil % 2.2 %; Hematocrit 33.5 % (38-53); Hemoglobin 12.1 g/dL (13.2-16.3); Lymphocyte % 29.6 %; Mean Corpuscular Hemoglobin 31.5 pg (27-33); Mean Corpuscular Hgb Conc 36.1 g/dL (31-36); Mean Corpuscular Volume 87.5 fL (80-97); Mean Platelet Volume 6.7 fL (7.5-11.2); Platelet Count 262 10^3/uL (150-450); Red Blood Count 3.83 10^6/uL (4.06-5.63); Red Cell Distribution Width 13.8 % (12-17); White Blood Count 7.5 10^3/uL (3.6-10.2)
[2022-12-10 05:03] LABS: Calcium 8.5 mg/dL (8.6-10.3); Creatinine, Serum 1.01 mg/dL (0.67-1.17); Potassium 3.6 mmol/L (3.5-5.0); eGFR CKD-EPI 71.1 (>60)
[2022-12-10] MEDS: Aspirin EC 81 mg TAB.EC (enteric coated) PO SCH (09:54)
[2022-12-11] MEDS ORDERED: Labetalol IV 5 MG/ML 20 ml VIAL IV PUSH ONE (00:04)
[2022-12-11] MEDS: Aspirin EC 81 mg TAB.EC (enteric coated) PO SCH (10:11)
[2022-12-11] MEDS ORDERED: Furosemide 20 mg/2 ml IV VIAL IV ONE (15:53)
[2022-12-11 17:05] LABS: Calcium 8.5 mg/dL (8.6-10.3); Creatinine, Serum 1.18 mg/dL (0.67-1.17); Potassium 3.4 mmol/L (3.5-5.0)
[2022-12-11] MEDS ORDERED: Lactated Ringers 1000 ml BAG 1,000 ML IV SCH (18:00)
[2022-12-12 08:54] LABS: Blood Urea Nitrogen 10 mg/dL (6-24); CO2 Carbon Dioxide 22 mmol/L (22-32); Calcium 8.6 mg/dL (8.6-10.3); Chloride 102 mmol/L (101-111); Creatinine, Serum 0.94 mg/dL (0.67-1.17); Glucose 107 mg/dL (70-100); Sodium 134 mmol/L (135-145); eGFR CKD-EPI 77.5 (>60)
[2022-12-12 08:57] LABS: Anion Gap 10 mmol/L (2-16)
[2022-12-12] MEDS ORDERED: NS 0.9% 500 ml BAG 500 ML IV ONE (13:38)
[2022-12-12] MEDS: Aspirin EC 81 mg TAB.EC (enteric coated) PO SCH (13:41)
[2022-12-13] MEDS: Aspirin EC 81 mg TAB.EC (enteric coated) PO SCH (09:54)
[2022-12-13] MEDS ORDERED: NS 0.9% 500 ml BAG 500 ML IV ONE (16:03)
[2022-12-13] MEDS ORDERED: Potassium Chlor 20 meq TAB.ER PO ONE (16:03)
[2022-12-13 19:57] LABS: Calcium 8.5 mg/dL (8.6-10.3); Creatinine, Serum 0.93 mg/dL (0.67-1.17); Potassium 3.5 mmol/L (3.5-5.0); eGFR CKD-EPI 78.5 (>60)
[2022-12-13] MEDS ORDERED: Potassium Chloride LIQUID 20 MEQ/15 ML LIQUID PO ONE (20:00)
[2022-12-14 06:00] LABS: ABS Basophils 0.1 10^3/uL (0.0-0.1); ABS Eosinophils 0.2 10^3/uL (0.0-0.5); ABS Monocytes 0.7 10^3/uL (0.0-1.1); ABS Neutrophils 5.5 10^3/uL (1.5-7.6); ABS Nucleated RBC 0.01 10^3/ul; Eosinophil % 2.2 %; Hemoglobin 11.5 g/dL (13.2-16.3); Lymphocyte % 23.7 %; Mean Corpuscular Hemoglobin 31.5 pg (27-33); Mean Corpuscular Volume 87.5 fL (80-97); Mean Platelet Volume 6.7 fL (7.5-11.2); Nucleated Red Blood Cells % 0.1 /100 WBC (0.0-0.4); Platelet Count 269 10^3/uL (150-450); Red Blood Count 3.65 10^6/uL (4.06-5.63); Red Cell Distribution Width 13.6 % (12-17); White Blood Count 8.5 10^3/uL (3.6-10.2)
[2022-12-14 06:26] LABS: Calcium 8.2 mg/dL (8.6-10.3); Creatinine, Serum 0.86 mg/dL (0.67-1.17); Magnesium 1.8 mg/dL (1.9-2.7); Phosphorus 2.6 mg/dL (2.5-5.0); Potassium 3.6 mmol/L (3.5-5.0); eGFR CKD-EPI 82.8 (>60)
[2022-12-14] MEDS: Aspirin EC 81 mg TAB.EC (enteric coated) PO SCH (10:43)
[2022-12-14 11:04] VITALS: BP 156/63
== END 2022-12-14 14:10 | disposition home or self-care (01) ==
LOC: EDHOLD 23:53 → ED 23:53 → SUATTDRO 12-09 03:24 → EDHOLD 12-10 18:21 → MEDTELE 12-10 18:47
PROVIDERS: ADMIT Internal Medicine; ATTEND Internal Medicine

== ENCOUNTER 2023-04-23 16:09 | Inpatient (IN) ==
[2023-04-23 16:36] LABS: ABS Eosinophils 0.5 10^3/uL (0.0-0.5); ABS Lymphocytes 1.4 10^3/uL (1.0-4.8); ABS Monocytes 0.4 10^3/uL (0.0-1.1); ABS Neutrophils 2.6 10^3/uL (1.5-7.6); Eosinophil % 9.4 %; Hematocrit 34.1 % (38-53); Hemoglobin 11.8 g/dL (13.2-16.3); Mean Corpuscular Hgb Conc 34.5 g/dL (31-36); Mean Corpuscular Volume 86.9 fL (80-97); Mean Platelet Volume 6.9 fL (7.5-11.2); Nucleated Red Blood Cells % 0.1 %/100WBC (0.0-0.8); Platelet Count 286 10^3/uL (150-450); Red Blood Count 3.93 10^6/uL (4.06-5.63); Red Cell Distribution Width 13.7 % (12-17); White Blood Count 4.9 10^3/uL (3.6-10.2)
[2023-04-23 16:58] LABS: Albumin 3.6 g/dL (3.2-5.2); Albumin/Globulin Ratio 1.2 (1-3); C Reactive Protein 9.35 mg/L (<8.01); Calcium 8.8 mg/dL (8.6-10.3); Creatinine, Serum 1.06 mg/dL (0.67-1.17); Globulin 2.9 g/dL (2-4); Magnesium 1.8 mg/dL (1.9-2.7); Potassium 4.2 mmol/L (3.5-5.0); Total Bilirubin 0.5 mg/dL (0.2-1.0); Total Protein 6.5 g/dL (6.4-8.9); eGFR CKD-EPI 67.1 (>60)
[2023-04-23 19:47] LABS: Urine Appearance Cloudy; Urine Bilirubin Negative (Negative); Urine Blood 1+ (Negative); Urine Color Yellow; Urine Glucose Negative (Negative); Urine Ketones Negative (Negative); Urine Nitrite Negative (Negative); Urine Protein 1+(30 mg/dL) (Negative); Urine Specific Gravity 1.004 (1.002-1.030); Urine Urobilinogen Negative (Negative)
[2023-04-23 20:06] LABS: Urine Bacteria 1+ (Absent); Urine Red Blood Cell 3+(>10/hpf) (Absent); Urine White Blood Cell 3+(>20/hpf) (Absent)
[2023-04-23] MEDS: Enoxaparin 40 MG/0.4 ML SYR SUBCUT SCH (22:47)
[2023-04-23] MEDS: cefTRIAXone 1 gm/50 mL D5W 1 GM/50 ML BAG IV SCH (22:47)
[2023-04-24] MEDS ORDERED: Magnesium Sulfate 2 gm BAG 2 GM/50 ML BAG IVPB ONE (01:32)
[2023-04-24] MEDS: Cholecalciferol (VIT D3) 1,000 unit TAB PO SCH ×2 (02:17→20:22)
[2023-04-24] MEDS: CRANBERRY FRUIT 250 MG PO SCH ×3 (02:17→20:25)
[2023-04-24] MEDS ORDERED: hydrALAZINE 20 mg/ml 1 ML Vial IV IV SLOW PU ONE (05:17)
[2023-04-24 05:34] LABS: Urine Osmo 211 mOsm/kg (150-1150)
[2023-04-24 07:16] LABS: Calcium 8.7 mg/dL (8.6-10.3); Creatinine, Serum 1.04 mg/dL (0.67-1.17); Potassium 3.9 mmol/L (3.5-5.0); eGFR CKD-EPI 68.6 (>60)
[2023-04-24 09:29] LABS: Osmolality Serum 276 mOsm/kg (275-295)
[2023-04-24] MEDS: Enoxaparin 40 MG/0.4 ML SYR SUBCUT SCH (20:25)
[2023-04-24] MEDS: cefTRIAXone 1 gm/50 mL D5W 1 GM/50 ML BAG IV SCH (20:27)
[2023-04-25] MEDS ORDERED: hydrALAZINE 20 mg/ml 1 ML Vial IV IV SLOW PU ONE (03:27)
[2023-04-25 06:05] LABS: ABS Basophils 0.1 10^3/uL (0.0-0.1); ABS Eosinophils 0.1 10^3/uL (0.0-0.5); ABS Lymphocytes 2.1 10^3/uL (1.0-4.8); ABS Monocytes 0.7 10^3/uL (0.0-1.1); ABS Neutrophils 4.7 10^3/uL (1.5-7.6); Eosinophil % 1.3 %; Hematocrit 30.6 % (38-53); Hemoglobin 11.1 g/dL (13.2-16.3); Lymphocyte % 27.7 %; Mean Corpuscular Hemoglobin 30.8 pg (27-33); Mean Corpuscular Hgb Conc 36.2 g/dL (31-36); Mean Corpuscular Volume 85.1 fL (80-97); Mean Platelet Volume 7.5 fL (7.5-11.2); Platelet Count 296 10^3/uL (150-450); Red Blood Count 3.59 10^6/uL (4.06-5.63); Red Cell Distribution Width 13.9 % (12-17); White Blood Count 7.7 10^3/uL (3.6-10.2)
[2023-04-25 06:45] LABS: Calcium 8.5 mg/dL (8.6-10.3); Creatinine, Serum 1.16 mg/dL (0.67-1.17); Magnesium 2.2 mg/dL (1.9-2.7); Potassium 3.8 mmol/L (3.5-5.0); eGFR CKD-EPI 60.2 (>60)
[2023-04-25] MEDS ORDERED: Potassium Chlor 20 meq TAB.ER PO ONE (07:12)
[2023-04-25] MEDS: CRANBERRY FRUIT 250 MG PO SCH (08:42)
[2023-04-25] MEDS: Cholecalciferol (VIT D3) 1,000 unit TAB PO SCH (21:25)
[2023-04-25] MEDS: Enoxaparin 40 MG/0.4 ML SYR SUBCUT SCH (21:27)
[2023-04-25] MEDS: cefTRIAXone 1 gm/50 mL D5W 1 GM/50 ML BAG IV SCH (21:35)
[2023-04-26] MEDS: CRANBERRY FRUIT 250 MG PO SCH ×3 (00:04→20:13)
[2023-04-26] MEDS ORDERED: hydrALAZINE 20 mg/ml 1 ML Vial IV IV SLOW PU ONE (02:58)
[2023-04-26 06:51] LABS: ABS Basophils 0.1 10^3/uL (0.0-0.1); ABS Eosinophils 0.1 10^3/uL (0.0-0.5); ABS Monocytes 0.6 10^3/uL (0.0-1.1); ABS Neutrophils 3.1 10^3/uL (1.5-7.6); Eosinophil % 1.5 %; Hemoglobin 10.8 g/dL (13.2-16.3); Lymphocyte % 34.8 %; Mean Corpuscular Hemoglobin 30.1 pg (27-33); Mean Corpuscular Hgb Conc 34.9 g/dL (31-36); Mean Corpuscular Volume 86.3 fL (80-97); Mean Platelet Volume 7.2 fL (7.5-11.2); Nucleated Red Blood Cells % 0.1 %/100WBC (0.0-0.8); Platelet Count 274 10^3/uL (150-450); White Blood Count 5.8 10^3/uL (3.6-10.2)
[2023-04-26 07:13] LABS: Calcium 8.3 mg/dL (8.6-10.3); Creatinine, Serum 1.04 mg/dL (0.67-1.17); Magnesium 1.9 mg/dL (1.9-2.7); Potassium 3.9 mmol/L (3.5-5.0); eGFR CKD-EPI 68.6 (>60)
[2023-04-26] MEDS ORDERED: Potassium Chlor 10 meq TAB PO ONE (07:40)
[2023-04-26] MEDS ORDERED: hydrALAZINE 20 mg/ml 1 ML Vial IV IV SLOW PU PRN (10:55)
[2023-04-26 17:00] LABS: Urine Appearance Cloudy; Urine Bilirubin Negative (Negative); Urine Blood 2+ (Negative); Urine Color Yellow; Urine Glucose Negative (Negative); Urine Ketones Negative (Negative); Urine Nitrite Negative (Negative); Urine Protein 2+(100 mg/dL) (Negative); Urine Specific Gravity 1.009 (1.002-1.030); Urine Urobilinogen Negative (Negative)
[2023-04-26 17:03] LABS: Urine Bacteria Absent (Absent); Urine Red Blood Cell 3+(>10/hpf) (Absent); Urine White Blood Cell 3+(>20/hpf) (Absent)
[2023-04-26] MEDS: Enoxaparin 40 MG/0.4 ML SYR SUBCUT SCH (20:13)
[2023-04-26] MEDS: Cholecalciferol (VIT D3) 1,000 unit TAB PO SCH (20:14)
[2023-04-26] MEDS: cefTRIAXone 1 gm/50 mL D5W 1 GM/50 ML BAG IV SCH (20:22)
[2023-04-27 06:29] LABS: ABS Basophils 0.1 10^3/uL (0.0-0.1); ABS Eosinophils 0.2 10^3/uL (0.0-0.5); ABS Lymphocytes 2.3 10^3/uL (1.0-4.8); ABS Monocytes 0.6 10^3/uL (0.0-1.1); ABS Neutrophils 2.6 10^3/uL (1.5-7.6); Eosinophil % 3.7 %; Hematocrit 31.4 % (38-53); Lymphocyte % 39.9 %; Mean Corpuscular Hemoglobin 30.5 pg (27-33); Mean Corpuscular Volume 87.2 fL (80-97); Mean Platelet Volume 6.9 fL (7.5-11.2); Platelet Count 273 10^3/uL (150-450); Red Cell Distribution Width 13.5 % (12-17); White Blood Count 5.9 10^3/uL (3.6-10.2)
[2023-04-27 06:51] LABS: Calcium 8.3 mg/dL (8.6-10.3); Creatinine, Serum 1.05 mg/dL (0.67-1.17); eGFR CKD-EPI 67.9 (>60)
[2023-04-27] MEDS: CRANBERRY FRUIT 250 MG PO SCH ×2 (08:41→19:49)
[2023-04-27] MEDS: cefTRIAXone 1 gm/50 mL D5W 1 GM/50 ML BAG IV SCH (19:47)
[2023-04-27] MEDS: Enoxaparin 40 MG/0.4 ML SYR SUBCUT SCH (19:50)
[2023-04-27] MEDS: Cholecalciferol (VIT D3) 1,000 unit TAB PO SCH (19:50)
[2023-04-28 06:12] LABS: ABS Basophils 0.1 10^3/uL (0.0-0.1); ABS Eosinophils 0.2 10^3/uL (0.0-0.5); ABS Lymphocytes 2.4 10^3/uL (1.0-4.8); ABS Monocytes 0.6 10^3/uL (0.0-1.1); ABS Neutrophils 3.3 10^3/uL (1.5-7.6); Eosinophil % 3.7 %; Hematocrit 32.4 % (38-53); Hemoglobin 11.2 g/dL (13.2-16.3); Lymphocyte % 36.2 %; Mean Corpuscular Hemoglobin 29.7 pg (27-33); Mean Corpuscular Hgb Conc 34.5 g/dL (31-36); Nucleated Red Blood Cells % 0.1 %/100WBC (0.0-0.8); Platelet Count 287 10^3/uL (150-450); Red Blood Count 3.76 10^6/uL (4.06-5.63); Red Cell Distribution Width 13.6 % (12-17); White Blood Count 6.6 10^3/uL (3.6-10.2)
[2023-04-28 06:31] LABS: Calcium 8.4 mg/dL (8.6-10.3); Creatinine, Serum 1.27 mg/dL (0.67-1.17); Potassium 4.1 mmol/L (3.5-5.0)
[2023-04-28] MEDS: CRANBERRY FRUIT 250 MG PO SCH ×2 (10:28→20:02)
[2023-04-28] MEDS: Cholecalciferol (VIT D3) 1,000 unit TAB PO SCH (20:02)
[2023-04-28] MEDS: Enoxaparin 40 MG/0.4 ML SYR SUBCUT SCH (20:04)
[2023-04-28] MEDS: cefTRIAXone 1 gm/50 mL D5W 1 GM/50 ML BAG IV SCH (20:08)
[2023-04-29 05:58] LABS: Hematocrit 31.7 % (38-53); Hemoglobin 11.3 g/dL (13.2-16.3); Mean Corpuscular Hemoglobin 30.5 pg (27-33); Mean Corpuscular Hgb Conc 35.7 g/dL (31-36); Mean Corpuscular Volume 85.4 fL (80-97); Mean Platelet Volume 7.1 fL (7.5-11.2); Platelet Count 289 10^3/uL (150-450); Red Blood Count 3.71 10^6/uL (4.06-5.63); Red Cell Distribution Width 13.5 % (12-17); White Blood Count 5.5 10^3/uL (3.6-10.2)
[2023-04-29 06:21] LABS: Calcium 8.5 mg/dL (8.6-10.3); Creatinine, Serum 1.08 mg/dL (0.67-1.17); Magnesium 1.9 mg/dL (1.9-2.7); Potassium 3.8 mmol/L (3.5-5.0); eGFR CKD-EPI 65.6 (>60)
[2023-04-29] MEDS ORDERED: Potassium Chlor 20 meq TAB.ER PO ONE (07:20)
[2023-04-29] MEDS ORDERED: Magnesium Sulfate IV 1GM/100ML 1 GM/100 ML BAG IV ONE (07:20)
[2023-04-29] MEDS: CRANBERRY FRUIT 250 MG PO SCH ×2 (09:38→20:33)
[2023-04-29] MEDS: Cholecalciferol (VIT D3) 1,000 unit TAB PO SCH (20:33)
[2023-04-29] MEDS: Enoxaparin 40 MG/0.4 ML SYR SUBCUT SCH (20:33)
[2023-04-29] MEDS: cefTRIAXone 1 gm/50 mL D5W 1 GM/50 ML BAG IV SCH (20:34)
[2023-04-30 05:29] VITALS: BP 155/60
[2023-04-30 07:13] LABS: Calcium 8.2 mg/dL (8.6-10.3); Creatinine, Serum 1.04 mg/dL (0.67-1.17); Magnesium 2.1 mg/dL (1.9-2.7); Potassium 3.8 mmol/L (3.5-5.0); eGFR CKD-EPI 68.6 (>60)
[2023-04-30] MEDS ORDERED: Potassium Chlor 20 meq TAB.ER PO ONE (07:19)
[2023-04-30] MEDS: CRANBERRY FRUIT 250 MG PO SCH (09:46)
== END 2023-04-30 10:10 | DRG 690 ==
LOC: ED 16:09 → EDHOLD 16:09 → SUATTDRO 20:17 → MED 22:54 → SUATTDRO 04-25 11:36
PROVIDERS: ADMIT Internal Medicine; ATTEND Internal Medicine

== ENCOUNTER 2023-04-30 07:16 | Inpatient (IN) ==
[2023-04-30] MEDS ORDERED: Senna TAB 8.6 mg TAB PO PRN (11:39)
[2023-04-30] MEDS ORDERED: Magnesium Hydroxide LIQ 30 ML UDC PO PRN (11:39)
[2023-04-30] MEDS: cefTRIAXone 1 gm/50 mL D5W 1 GM/50 ML BAG IV SCH (20:42)
[2023-04-30] MEDS: Cholecalciferol (VIT D3) 1,000 unit TAB PO SCH (20:43)
[2023-05-01] MEDS: Enoxaparin 40 MG/0.4 ML SYR SUBCUT SCH (10:30)
[2023-05-01] MEDS: Cholecalciferol (VIT D3) 1,000 unit TAB PO SCH (20:31)
[2023-05-01] MEDS: cefTRIAXone 1 gm/50 mL D5W 1 GM/50 ML BAG IV SCH (20:35)
[2023-05-02 06:49] LABS: ABS Basophils 0.1 10^3/uL (0.0-0.1); ABS Eosinophils 0.4 10^3/uL (0.0-0.5); ABS Lymphocytes 1.7 10^3/uL (1.0-4.8); ABS Monocytes 0.6 10^3/uL (0.0-1.1); ABS Neutrophils 2.3 10^3/uL (1.5-7.6); ABS Nucleated RBC 0.01 10^3/ul; Eosinophil % 7.6 %; Hematocrit 33.2 % (38-53); Hemoglobin 11.4 g/dL (13.2-16.3); Mean Corpuscular Hemoglobin 29.5 pg (27-33); Mean Corpuscular Hgb Conc 34.4 g/dL (31-36); Mean Corpuscular Volume 85.7 fL (80-97); Nucleated Red Blood Cells % 0.2 %/100WBC (0.0-0.8); Platelet Count 303 10^3/uL (150-450); Red Blood Count 3.87 10^6/uL (4.06-5.63); Red Cell Distribution Width 13.6 % (12-17)
[2023-05-02 07:17] LABS: Albumin 3.5 g/dL (3.2-5.2); Albumin/Globulin Ratio 1.2 (1-3); Calcium 8.6 mg/dL (8.6-10.3); Creatinine, Serum 1.24 mg/dL (0.67-1.17); Globulin 2.9 g/dL (2-4); Potassium 4.1 mmol/L (3.5-5.0); Total Bilirubin 0.4 mg/dL (0.2-1.0); Total Protein 6.4 g/dL (6.4-8.9); eGFR CKD-EPI 55.6 (>60)
[2023-05-02] MEDS: Enoxaparin 40 MG/0.4 ML SYR SUBCUT SCH (10:02)
[2023-05-02] MEDS: Cholecalciferol (VIT D3) 1,000 unit TAB PO SCH (20:22)
[2023-05-02] MEDS: cefTRIAXone 1 gm/50 mL D5W 1 GM/50 ML BAG IV SCH (20:22)
[2023-05-03] MEDS: Enoxaparin 40 MG/0.4 ML SYR SUBCUT SCH (09:24)
[2023-05-03] MEDS: Cholecalciferol (VIT D3) 1,000 unit TAB PO SCH (20:29)
[2023-05-04 07:56] LABS: Calcium 8.6 mg/dL (8.6-10.3); Creatinine, Serum 1.04 mg/dL (0.67-1.17); Potassium 3.5 mmol/L (3.5-5.0); eGFR CKD-EPI 68.6 (>60)
[2023-05-04] MEDS: Enoxaparin 40 MG/0.4 ML SYR SUBCUT SCH (08:57)
[2023-05-04] MEDS: Polyethylene Glycol 3350 17 GM PACKET PO SCH (08:57)
[2023-05-04] MEDS: Albuterol HFA INHALER 8 gm MDI INH PRN ×2 (12:03→18:16)
[2023-05-04] MEDS: Cholecalciferol (VIT D3) 1,000 unit TAB PO SCH (20:51)
[2023-05-05] MEDS: Albuterol HFA INHALER 8 gm MDI INH PRN (00:40)
[2023-05-05] MEDS: Enoxaparin 40 MG/0.4 ML SYR SUBCUT SCH (09:00)
[2023-05-05] MEDS: Polyethylene Glycol 3350 17 GM PACKET PO SCH (09:13)
[2023-05-05] MEDS: Cholecalciferol (VIT D3) 1,000 unit TAB PO SCH (20:34)
[2023-05-06] MEDS: Enoxaparin 40 MG/0.4 ML SYR SUBCUT SCH (08:59)
[2023-05-06] MEDS: Polyethylene Glycol 3350 17 GM PACKET PO SCH (09:04)
[2023-05-06 09:14] VITALS: BP 134/66
== END 2023-05-06 14:45 | disposition home or self-care (01) | DRG 57 ==
LOC: PMRU 10:11
PROVIDERS: ADMIT Physical Medicine & Rehabilitation; ATTEND Physical Medicine & Rehabilitation